=== PATIENT | female | born 1950 | race Caucasian/White ===

== ENCOUNTER → 2016-03-17 | Outpatient (CLI) | payer MEDICARE ==
[~2016-03-17] MED LIST: 50% DEXTRO25 GM/50 M IV; AMLODIPINE5 MG PO; ATORVASTATIN CA80 M1 PO; BACTRIM DS 8001 TA1 PO; BISACODYL LAXATI5 MG PO; CORBAN MAGNESI400 MG PO; COREG3.125 MG PO; CRESTOR20 MG PO; DOXYCYCLINE100 M3 PO; ENOXAPARIN100 MG/ML SC; FISH OIL 10001000 MG PO; FISH OIL1 IU; FLONASE 0.05% 121 EA NAS; HUMALOG100 U/ML SC; HYCODAN/HYDROMET5 ML PO; K-DUR 2020 MEQ PO; K-DUR 20MEQ20 MEQ PO; K-DUR20 MEQ PO; LISINOPRIL AND1 TA1 PO; LISINOPRIL30 MG PO; MAGNESIUM OXID400 MG PO; MAGOX 400241.3 MG PO; MAXZIDE-25 25MG25 MG PO; METFORMIN500 MG; METFORMIN750 MG PO; MILK OF MA400 MG/51 PO; MULTI-DAY PLUS1 TAB PO; Metformin Hydr500 MG PO; NIACIN500 M3 PO; NORVASC10 MG PO; OMEPRAZOLE D/R20 MG PO; ONDANSETRON H2 MG/ML IV; PREDNISONE10 MG; PREDNISONE10 MG PO; SIMVASTATIN20 MG PO; SINGULAIR10 MG PO; SYMBICORT1 AE1; TOPROL XL50 M1 PO; TUSSI-ORGANID3840 ML PO; VENTOLIN H0.09 MG/AC IH; VERELAN SR 240240 MG PO; XANAX XR1 MG PO; XANAX1 MG PO; ZOCOR80 MG; ZOLOFT PO; ZOLOFT100 MG PO; ZOLOFT50 MG PO; [UNRECOGNIZED DRUG - OTHER]
[2016-03-17 15:51] LABS: HEMOGLOBIN A1c 6.3 % (4.8-5.6)
[2016-03-17 15:59] LABS: ALBUMIN 3.3 gm/dl (3.1-4.5); ALKALINE PHOSPHATASE 80 U/L (45-117); BILIRUBIN, DIRECT 0.1 mg/dL (0.0-0.2); BILIRUBIN, TOTAL 0.8 mg/dl (0.2-1.0); BUN 12 mg/dl (7-24); CARBON DIOXIDE 26 mmol/L (21-32); CHLORIDE 109 mmol/L (98-107); CHOLESTEROL 166 mg/dL (<200); CPK 98 U/L (26-192); EST GLOM FILT AFRICAN AMERICAN > 60 ml/min; GLUCOSE 126 mg/dL (65-99); HDL CHOLESTEROL 46 mg/dl (40-60); LDL CHOLESTEROL 72 mg/dL (9-159); POTASSIUM 4.2 mmol/L (3.5-5.1); SGOT/AST 16 IU/L (3-35); SGPT/ALT 33 U/L (12-78); SODIUM 144 mmol/L (136-145); TOTAL PROTEIN 6.9 gm/dL (6.4-8.2); TRIGLYCERIDES 239 mg/dl (<150); VLDL CHOLESTEROL 48 mg/dL (6-40)
== END | disposition home or self-care (01) ==
LOC: LAB 14:55
PROVIDERS: Family Medicine
DX: E11.9 Type 2 diabetes mellitus without complications (principal); I10 Essential (primary) hypertension; K75.81 Nonalcoholic steatohepatitis (NASH); E78.00 Pure hypercholesterolemia, unspecified

== ENCOUNTER 2016-06-06 19:09 | Emergency (ER) | payer MEDICARE ==
[~2016-06-06] VITALS: Ht 152.4 cm; Wt 108.9 kg
[2016-06-06 19:22] VITALS: BP 162/84
[2016-06-06] MEDS ORDERED: MEDROL DOSEPAK4 MG PO (21:29)
[2016-06-06] MEDS ORDERED: ZITHROMAX250 MG PO (21:29)
[2016-06-06] MEDS ORDERED: TESSALON PERLE100 M1 PO (21:33)
== END 2016-06-06 21:35 | disposition home or self-care (01) ==
LOC: ED 19:09
DX: J40 Bronchitis, not specified as acute or chronic (principal); Z79.4 Long term (current) use of insulin; Z88.0 Allergy status to penicillin; Z88.1 Allergy status to other antibiotic agents; Z79.899 Other long term (current) drug therapy

== ENCOUNTER 2016-10-22 20:26 | Inpatient (IN) | payer MEDICARE, MEDICAID ==
[~2016-10-22] VITALS: Ht 152.4 cm; Wt 107.0 kg
--- NOTE | ~2016-10-22 | EKG ---
[place], [place] ELECTROCARDIOGRAM REPORT NAME: YAMILA JUÁREZ UNIT #: [id number] ROOM: 531 DOCTOR: NIEVES DINERO,ROB BIRTHDATE: [birth year] DOS: 10/22/2016 TIME: 2055 hours INTERPRETATION: 1. Ectopic atrial rhythm. 2. First degree AV block. 3. Incomplete right bundle branch block. 4. LV hypertrophy. ROB PICKETT MD CM:EKGRPT:ELECTROCARDIOGRAM REPORT [id number] ROB PICKETT MD
[~2016-10-22 20:26] MED LIST changes: +MEDROL DOSEPAK4 MG PO; +TESSALON PERLE100 M1 PO; +ZITHROMAX250 MG PO
[2016-10-22] MEDS ORDERED: COZAAR50 M1 PO (20:36)
[2016-10-22] MEDS ORDERED: ZOLOFT100 MG PO (20:37)
[2016-10-22] MEDS ORDERED: CLARITIN10 MG PO (20:37)
[2016-10-22] MEDS ORDERED: COREG3.125 MG PO (20:37)
[2016-10-22] MEDS ORDERED: SINGULAIR10 M1 PO (20:37)
[2016-10-22 20:38] VITALS: BP 190/118
[2016-10-22 20:58] LABS: HEMATOCRIT 37.5 % (37.0-47.0); HEMOGLOBIN 12.4 g/dl (12.0-16.0); MEAN CELL VOLUME 93.1 fl (81.0-99.0); MEAN CORPUSCULAR HGB 30.8 pg (27.0-31.0); MEAN CORPUSCULAR HGB CONC 33.1 g/dl (33.0-37.0); MEAN PLATELET VOLUME 9.6 fl (9.6-12.3); PLATELET COUNT AUTOMATED 345 10*3/uL (130-400); RED BLOOD COUNT 4.03 10*6/uL (4.10-5.10); RED CELL DISTRI WIDTH 13.4 % (0-14.5); WHITE BLOOD COUNT 16.1 10*3/uL (4.8-10.8)
[2016-10-22 21:08] LABS: ACT PARTIAL THROMBO TIME 21.2 SECONDS (20.8-31.5); INTERNATIONAL NORM RATIO 1.1 (2.0-3.5)
[2016-10-22 21:15] LABS: ALBUMIN 3.4 gm/dl (3.1-4.5); ALKALINE PHOSPHATASE 68 U/L (45-117); BUN 13 mg/dl (7-24); CHLORIDE 104 mmol/L (98-107); CREATININE 0.78 mg/dL (0.55-1.02); MAGNESIUM 1.2 mg/dL (1.5-2.1); POTASSIUM 3.2 mmol/L (3.5-5.1); SGOT/AST 12 IU/L (3-35); SGPT/ALT 23 U/L (12-78); SODIUM 140 mmol/L (136-145)
[2016-10-22 21:16] LABS: TROPONIN I < 0.015 ng/ml (<0.045)
[2016-10-22 21:17] LABS: TOTAL CELLS COUNTED 100 #CELLS
[2016-10-22 21:20] LABS: PLATELET SUFFICIENCY NORMAL (NORMAL)
[2016-10-22 21:21] LABS: POLYCHROMASIA SLIGHT
[2016-10-22 21:37] VITALS: BP 175/95
[2016-10-22 22:19] VITALS: BP 192/98
[2016-10-22 22:57] VITALS: BP 163/82
[2016-10-23] VITALS (8 sets, daily range): BP systolic 136–176; BP diastolic 75–90
[2016-10-23] MEDS ORDERED: SYMBICORT INH (00:22)
[2016-10-23 03:03] LABS: BASO % 0.3 % (0.0-1.0); EOS # 0.1 10*3/uL (0.0-0.4); EOS % 1.1 % (1.0-4.0); HEMATOCRIT 33.4 % (37.0-47.0); LYMPH # 3.9 10*3/uL (1.3-4.4); MEAN CORPUSCULAR HGB 30.6 pg (27.0-31.0); MEAN CORPUSCULAR HGB CONC 32.9 g/dl (33.0-37.0); MEAN PLATELET VOLUME 9.5 fl (9.6-12.3); MONO # 0.8 10*3/uL (0.1-1.0); NEUT # 7.5 10*3/uL (2.3-7.9); NEUT % 60.2 % (47.0-73.0); PLATELET COUNT AUTOMATED 298 10*3/uL (130-400); RED BLOOD COUNT 3.59 10*6/uL (4.10-5.10); RED CELL DISTRI WIDTH 13.5 % (0-14.5); WHITE BLOOD COUNT 12.5 10*3/uL (4.8-10.8)
[2016-10-23 03:19] LABS: ALBUMIN 2.9 gm/dl (3.1-4.5); ALKALINE PHOSPHATASE 65 U/L (45-117); BUN 12 mg/dl (7-24); CHLORIDE 103 mmol/L (98-107); CHOLESTEROL 145 mg/dL (<200); CREATININE 0.79 mg/dL (0.55-1.02); HDL CHOLESTEROL 44 mg/dl (40-60); LDL CHOLESTEROL 47 mg/dL (9-159); MAGNESIUM 1.6 mg/dL (1.5-2.1); PHOSPHOROUS 4.1 mg/dL (2.5-4.9); POTASSIUM 3.1 mmol/L (3.5-5.1); SGOT/AST 10 IU/L (3-35); SGPT/ALT 22 U/L (12-78); SODIUM 144 mmol/L (136-145); TOTAL PROTEIN 6.2 gm/dL (6.4-8.2); TRIGLYCERIDES 272 mg/dl (<150); VLDL CHOLESTEROL 54 mg/dL (6-40)
[2016-10-23 03:33] LABS: INTERNATIONAL NORM RATIO 1.1 (2.0-3.5)
[2016-10-23 03:36] LABS: BILIRUBIN NEGATIVE (NEGATIVE); BLOOD NEGATIVE (NEGATIVE); CLARITY CLEAR (CLEAR); COLOR YELLOW (YELLOW); GLUCOSE NEGATIVE (NEGATIVE); KETONE NEGATIVE (NEGATIVE); LEUKO ESTERASE NEGATIVE (NEGATIVE); NITRITE NEGATIVE (NEGATIVE); PH 5.5 (5.0-9.0); SPECIFIC GRAVITY 1.015 (1.005-1.030); UROBILINOGEN 0.2 E.U./dl (0.2-1.0)
[2016-10-23 03:45] LABS: WBC 0-2 wbc/hpf (0-5)
[2016-10-23 06:15] LABS: VITAMIN D, 25-HYDROXY 31.4 ng/mL (30-100)
[2016-10-24] VITALS: BP 154/72
[2016-10-24 08:00] VITALS: BP 162/98
[2016-10-24 12:00] VITALS: BP 168/92
== END 2016-10-24 15:22 | disposition home or self-care (01) | DRG 305 ==
LOC: ED 20:26 → EDHOLD 21:51 → 5E 21:59
PROVIDERS: Hospitalist; Student in an Organized Health Care Education/Training Program; ADMIT Internal Medicine
DX: I16.0 Hypertensive urgency (principal); E83.42 Hypomagnesemia; K27.9 Peptic ulcer, site unspecified, unspecified as acute or chronic, without hemorrhage or perforation; Z68.42 Body mass index [BMI] 45.0-49.9, adult; D64.9 Anemia, unspecified; E11.9 Type 2 diabetes mellitus without complications; F32.9 Major depressive disorder, single episode, unspecified; D72.829 Elevated white blood cell count, unspecified; E87.6 Hypokalemia; I10 Essential (primary) hypertension; Z96.651 Presence of right artificial knee joint; E78.5 Hyperlipidemia, unspecified; K21.9 Gastro-esophageal reflux disease without esophagitis; J45.909 Unspecified asthma, uncomplicated; E66.9 Obesity, unspecified; F41.1 Generalized anxiety disorder; Z88.0 Allergy status to penicillin; Z88.1 Allergy status to other antibiotic agents; Z88.8 Allergy status to other drugs, medicaments and biological substances; Z79.899 Other long term (current) drug therapy; Z79.84 Long term (current) use of oral hypoglycemic drugs; Z90.49 Acquired absence of other specified parts of digestive tract; Z90.710 Acquired absence of both cervix and uterus; Z82.5 Family history of asthma and other chronic lower respiratory diseases; Z82.49 Family history of ischemic heart disease and other diseases of the circulatory system; Z82.0 Family history of epilepsy and other diseases of the nervous system; Z80.9 Family history of malignant neoplasm, unspecified; Z82.3 Family history of stroke

== ENCOUNTER → 2021-05-11 | Outpatient (CLI) | payer OTHER, MEDICAID ==
[~2021-05-11] MED LIST changes: +CLARITIN10 MG PO; +COZAAR50 M1 PO; +SINGULAIR10 M1 PO; +SYMBICORT INH
[2021-05-11 09:46] LABS: BASO % 0.4 % (0.0-1.0); EOS # 0.2 10*3/uL (0.0-0.4); EOS % 2.1 % (1.0-4.0); HEMATOCRIT 41.7 % (37.0-47.0); LYMPH # 2.3 10*3/uL (1.3-4.4); LYMPH % 29.4 % (27.0-41.0); MEAN CELL VOLUME 93.9 fl (81.0-99.0); MEAN CORPUSCULAR HGB CONC 31.9 g/dl (33.0-37.0); MEAN PLATELET VOLUME 10.5 fl (9.6-12.3); MONO # 0.8 10*3/uL (0.1-1.0); MONO % 9.6 % (3.0-9.0); NEUT # 4.5 10*3/uL (2.3-7.9); NEUT % 58.2 % (47.0-73.0); PLATELET COUNT AUTOMATED 301 10*3/uL (130-400); RED BLOOD COUNT 4.44 10*6/uL (4.10-5.10); RED CELL DISTRI WIDTH 13.2 % (0-14.5); RETICULOCYTE % 1.66 % (0.50-2.50); WHITE BLOOD COUNT 7.8 10*3/uL (4.8-10.8)
[2021-05-11 10:42] LABS: BUN 13 mg/dl (7-24); CHLORIDE 105 mmol/L (98-107); CHOLESTEROL 137 mg/dL (<200); CREATININE 0.82 mg/dL (0.55-1.02); GAMMA GLUTAMYL TRANSPEPTIDASE 16 U/L (5-55); IRON 71 ug/dL (50-170); POTASSIUM 3.8 mmol/L (3.5-5.1); SGOT/AST 22 IU/L (3-35); SGPT/ALT 29 U/L (12-78); SODIUM 139 mmol/L (136-145); TOTAL IRON BINDING CAPACITY 376 ug/dl (250-450); TRIGLYCERIDES 324 mg/dl (<150)
[2021-05-11 10:47] LABS: FERRITIN 32.8 ng/mL (10.0-291.0); VITAMIN D, 25-HYDROXY 33.6 ng/mL (30-100)
[2021-05-11 10:50] LABS: ALKALINE PHOSPHATASE 75 U/L (45-117); LDL CHOLESTEROL 40 mg/dL (9-159); TOTAL PROTEIN 7.4 gm/dL (6.4-8.2)
== END | disposition home or self-care (01) ==
LOC: LAB 09:09
PROVIDERS: ATTEND Family Medicine
DX: E78.5 Hyperlipidemia, unspecified (principal); R79.89 Other specified abnormal findings of blood chemistry; R53.83 Other fatigue; R74.8 Abnormal levels of other serum enzymes; E11.9 Type 2 diabetes mellitus without complications; E55.9 Vitamin D deficiency, unspecified

== ENCOUNTER → 2022-02-28 | Outpatient (CLI) | payer OTHER, MEDICAID ==
[2022-02-28 17:08] LABS: BASO % 0.5 % (0.0-1.0); EOS # 0.1 10*3/uL (0.0-0.4); EOS % 1.6 % (1.0-4.0); HEMATOCRIT 44.3 % (37.0-47.0); LYMPH # 2.3 10*3/uL (1.3-4.4); LYMPH % 28.3 % (27.0-41.0); MEAN CELL VOLUME 94.3 fl (81.0-99.0); MEAN CORPUSCULAR HGB 31.3 pg (27.0-31.0); MEAN CORPUSCULAR HGB CONC 33.2 g/dl (33.0-37.0); MEAN PLATELET VOLUME 10.3 fl (9.6-12.3); MONO # 0.7 10*3/uL (0.1-1.0); MONO % 8.9 % (3.0-9.0); NEUT # 4.9 10*3/uL (2.3-7.9); NEUT % 60.3 % (47.0-73.0); PLATELET COUNT AUTOMATED 327 10*3/uL (130-400); RED CELL DISTRI WIDTH 13.6 % (0-14.5); RETICULOCYTE % 2.04 % (0.50-2.50); WHITE BLOOD COUNT 8.2 10*3/uL (4.8-10.8)
[2022-02-28 18:00] LABS: VITAMIN D, 25-HYDROXY 50.8 ng/mL (30-100)
[2022-02-28 18:38] LABS: ALKALINE PHOSPHATASE 74 U/L (46-116); BUN 12 mg/dl (9-23); CHLORIDE 104 mmol/L (98-107); CHOLESTEROL 184 mg/dL (<200); GAMMA GLUTAMYL TRANSPEPTIDASE 18 U/L (0-73); LDL CHOLESTEROL 100 mg/dL (9-159); SGPT/ALT 25 U/L (10-49); THYROID STIM HORMONE (HS) 2.294 uIU/ml (0.550-4.780); TOTAL PROTEIN 7.5 gm/dL (6.0-8.0); TRIGLYCERIDES 250 mg/dl (<150)
== END | disposition home or self-care (01) ==
LOC: LAB 16:33
PROVIDERS: ATTEND Family Medicine
DX: E78.5 Hyperlipidemia, unspecified (principal); E55.9 Vitamin D deficiency, unspecified; R79.89 Other specified abnormal findings of blood chemistry; R53.83 Other fatigue; R74.8 Abnormal levels of other serum enzymes

== ENCOUNTER → 2023-06-15 | Outpatient (CLI) | payer OTHER, MEDICAID ==
[2023-06-15 17:16] LABS: BASO % 0.3 % (0.0-1.0); EOS # 0.4 10*3/uL (0.0-0.4); EOS % 4.2 % (1.0-4.0); HEMATOCRIT 43.5 % (37.0-47.0); LYMPH # 3.1 10*3/uL (1.3-4.4); LYMPH % 35.1 % (27.0-41.0); MEAN CELL VOLUME 96.5 fl (81.0-99.0); MEAN CORPUSCULAR HGB 30.8 pg (27.0-31.0); MEAN PLATELET VOLUME 10.2 fl (9.6-12.3); MONO # 0.8 10*3/uL (0.1-1.0); MONO % 9.1 % (3.0-9.0); NEUT # 4.5 10*3/uL (2.3-7.9); PLATELET COUNT AUTOMATED 300 10*3/uL (130-400); RED BLOOD COUNT 4.51 10*6/uL (4.10-5.10); RED CELL DISTRI WIDTH 12.8 % (0-14.5); RETICULOCYTE % 1.95 % (0.50-2.50); WHITE BLOOD COUNT 8.9 10*3/uL (4.8-10.8)
[2023-06-15 17:42] LABS: ALKALINE PHOSPHATASE 73 U/L (46-116); BUN 17 mg/dl (9-23); CHLORIDE 105 mmol/L (98-107); CHOLESTEROL 183 mg/dL (<200); GAMMA GLUTAMYL TRANSPEPTIDASE 20 U/L (0-73); LDL CHOLESTEROL 65 mg/dL (9-159); POTASSIUM 4.4 mmol/L (3.4-5.1); SGPT/ALT 19 U/L (5-49); T3 UPTAKE 27.5 % (22.4-36.7); THYROXINE (T4) TOTAL 6.2 ug/dl (4.5-10.9); TOTAL PROTEIN 7.3 gm/dL (6.0-8.0); TRIGLYCERIDES 377 mg/dl (<150)
== END | disposition home or self-care (01) ==
LOC: LAB 16:45
PROVIDERS: ATTEND Family Medicine
DX: E78.5 Hyperlipidemia, unspecified (principal); R79.89 Other specified abnormal findings of blood chemistry; R53.83 Other fatigue; E55.9 Vitamin D deficiency, unspecified